=== PATIENT | male | born 1945 | race Caucasian/White ===

== ENCOUNTER 2021-04-04 11:38 | Emergency (ER) | payer OTHER ==
[~2021-04-04] VITALS: Ht 177.8 cm; Wt 85.0 kg
[2021-04-04] MEDS ORDERED: LIPITOR20 M1 PO (13:18)
[2021-04-04] MEDS ORDERED: KEFLEX500 MG PO (15:16)
[2021-04-04 15:20] VITALS: BP 188/93
== END 2021-04-04 15:35 | disposition home or self-care (01) | DRG 159 ==
LOC: ED 11:38
DX: K04.7 Periapical abscess without sinus (principal); J32.9 Chronic sinusitis, unspecified

== ENCOUNTER 2022-04-17 09:10 | Emergency (ER) | payer OTHER ==
[~2022-04-17] VITALS: Ht 177.8 cm; Wt 81.0 kg
[~2022-04-17 09:10] MED LIST: KEFLEX500 MG PO; LIPITOR20 M1 PO
[2022-04-17 10:07] VITALS: BP 139/78
[2022-04-17 10:15] VITALS: BP 142/78
[2022-04-17 10:30] VITALS: BP 122/77
[2022-04-17] MEDS ORDERED: ZPAK PO (10:30)
[2022-04-17] MEDS ORDERED: BENZONATATE150 MG PO (10:31)
[2022-04-17 10:45] VITALS: BP 136/80
== END 2022-04-17 10:45 | disposition home or self-care (01) | DRG 153 ==
LOC: ED 09:10
DX: J06.9 Acute upper respiratory infection, unspecified (principal); Z20.822 Contact with and (suspected) exposure to COVID-19